=== PATIENT | female | born 1960 | race Two or more races ===

== ENCOUNTER 2024-12-03 14:25 | Outpatient (CLI) | payer BC ==
--- NOTE | 2024-12-03 15:29 | RADIOLOGY REPORT ---
EXAM: DI HIP BILATERAL 3-4 VIEWS CLINICAL INDICATION: RIGHT HIP PAIN TECHNIQUE: DI HIP BILATERAL 3-4 VIEWS Comparison: None FINDINGS/IMPRESSION: There is no evidence of acute fracture or dislocation. Moderate bilateral hip osteoarthritis. The alignment is anatomical. There is no radiopaque foreign body.
== END 2024-12-03 23:59 | disposition home or self-care (01) ==
LOC: RAD 14:25
PROVIDERS: ATTEND Family Medicine
DX: M16.0 Bilateral primary osteoarthritis of hip (principal); M25.551 Pain in right hip
CPT/HCPCS: 73522

== ENCOUNTER 2024-12-06 09:29 | Outpatient (CLI) | payer BC ==
--- NOTE | 2024-12-06 14:20 | VASCULAR REPORT ---
ULTRASOUND RENAL CLINICAL INDICATION: edema TECHNIQUE: Real-time sonographic, duplex, and color Doppler images of the kidneys were obtained. FINDINGS: InaRation's Uncontrolled hypertension Risk Factors Hypertension Renal Artery Doppler Right Renal Artery Left Renal Artery Proximal 82.4/22.1 cm/sec Proximal 228.8/79.3 cm/sec Mid 112.2/24.6 cm/sec Mid 150.2/47.7 cm/sec Distal 61.6/13.4 cm/sec Distal 118.2/37.1 cm/sec Hilar 130.0/44.0 cm/sec Hilar 58.0/15.0 cm/sec Renal/Aorta Ratio 0.70 Renal/Aorta Ratio 1.40 Resistive Index 0.69 Resistive Index 0.65 Renal Measurements Right Left Kidney Size 9.34 cm 5.12 cm Kidney Size 10.40 cm 4.97 cm Interlobar Artery 79.40/24.60 cm/s Interlobar Artery 50.20/17.40 cm/s Aortic Doppler Velocity Waveform Aorta Mid. 159.3 cm/sec CONCLUSION Imaging reveals patent Renal Arteries bilaterally. No evidence of significant stenosis and/or occlusion bilaterally. Kidneys appear well perfused bilaterally.
== END 2024-12-06 23:59 | disposition home or self-care (01) ==
LOC: VAS 09:29
PROVIDERS: ATTEND Family Medicine
DX: I10 Essential (primary) hypertension (principal)
CPT/HCPCS: 93975